=== PATIENT | male | born 1980 | race Caucasian/White ===

== ENCOUNTER 2018-12-10 20:00 | Emergency (ER) | payer SELFPAY ==
[2018-12-10 20:11] VITALS: RESP 18; O2SAT 100
[2018-12-10 21:30] LABS: BASO # 0.1 K/uL (0.0-0.2); BASO % 0.6 % (0.0-2.0); EOS # 0.1 K/uL (0.0-0.7); EOS % 1.3 % (0.0-4.0); HEMOGLOBIN 14.2 g/dL (12.0-18.0); LYMPH % 38.7 % (20.0-40.0); MEAN CORPUSCULAR HEMOGLOBIN 30.9 pg (27.0-31.0); MEAN CORPUSCULAR HGB CONC 33.6 g/dL (33.0-37.0); MEAN PLATELET VOLUME 9.5 fl (7.2-11.7); MONO # 0.7 K/uL (0.0-0.8); MONO % 6.4 % (0.0-10.0); NEUT # 5.5 K/uL (1.8-7.0); NRBC % 0.1 % (0.0-0.0); RBC 4.59 Mil/uL (4.40-5.90); WHITE BLOOD COUNT 10.4 K/uL (4.8-10.8)
[2018-12-10 21:39] LABS: BLOOD UREA NITROGEN 12 mg/dl (9-20); GFR NON-AFRICAN AMERICAN > 60
--- NOTE | 2018-12-10 21:52 | ED PDOC ---
HPI: General Adult Time Seen by Provider: 12/10/18 20:20 Chief Complaint (Nursing): GI Problem Chief Complaint (Provider): rectal bleed History Per: Patient History/Exam Limitations: no limitations Additional Complaint(s): 38 y/o M with no significant PMH who presents with rectal bleeding noted today. Pt states that he noted BRBPR this morning after having normal BM and had 3 more episodes after that in the toilet, not on paper. He did not have any further BMs but attempted to have BM. Denies rectal pain, unintentional weight loss, change in bowel habits/constipation, lightheadedness, bleeding disorder. Past Medical History Reviewed: Historical Data, Nursing Documentation, Vital Signs Vital Signs: Last Vital Signs Temp 98.7 F 12/10/18 20:07 Pulse 85 12/10/18 20:07 Resp 18 12/10/18 20:07 BP 145/79 12/10/18 20:07 Pulse Ox 100 12/10/18 20:07 - Medical History PMH: No Chronic Diseases - Family History Family History: States: Unknown Family Hx - Immunization History Hx Tetanus Toxoid Vaccination: No Hx Influenza Vaccination: No Hx Pneumococcal Vaccination: No - Home Medications Home Medications: Ambulatory Orders Medication Instructions Recorded Docusate Sodium [Colace] 100 mg PO BID 3 Days capsule 12/10/18 - Allergies Allergies/Adverse Reactions: Allergies Allergy/AdvReac Type Severity Reaction Status Date / Time No Known Allergies Allergy Verified 12/10/18 20:05 Review of Systems Constitutional: Negative for: Fever, Chills Gastrointestinal: Positive for: Hematochezia. Negative for: Nausea, Vomiting, Abdominal Pain, Diarrhea, Constipation, Rectal Pain Physical Exam - Reviewed Nursing Documentation Reviewed: Yes Vital Signs Reviewed: Yes - Physical Exam Appears: Positive for: Non-toxic Head Exam: Positive for: ATRAUMATIC Skin: Positive for: Normal Color. Negative for: Pallor Cardiovascular/Chest: Positive for: Regular Rate, Rhythm Respiratory: Positive for: Normal Breath Sounds Gastrointestinal/Abdominal: Positive for: Normal Exam Rectal: Positive for: Rectal Tone Is: (normal), Stool Is Heme: (+), Blood Streaked Stool, Other (performed in the presence of RN Fran). Negative for: Hemorrhoids, Mass Neurological/Psych: Positive for: Awake, Alert, Oriented - Laboratory Results Result Diagrams: 12/10/18 21:27 12/10/18 21:27 - ECG O2 Sat by Pulse Oximetry: 100 Medical Decision Making Medical Decision Making: CBC, BMP Occult stool Occult stool + labs wnl. Stable for d/c home with recommendation to follow up with GI doctor for further evaluation of rectal pain. Disposition - Clinical Impression Clinical Impression: Rectal bleed - Patient ED Disposition Is Patient to be Admitted: No - Disposition Referrals: [facility] [Outside] Jeb Bernal MD, PhD [Staff Provider] - Disposition: Routine/Home Disposition Time: 23:40 Condition: STABLE Additional Instructions: Follow up with your primary care provider and GI doctor for further evaluation of rectal bleeding as you may need a colonoscopy. Return to ER if you have wors ening bleeding or feel lightheaded. Prescriptions: Docusate Sodium [Colace] 100 mg PO BID 3 Days capsule Instructions: Bloody Stools, Adult (DC) Forms: [facility] (German) Print Language: [place]
[2018-12-10 23:34] VITALS: BP 114/73; PULSE 76; TEMP 98.6
== END 2018-12-10 23:40 | disposition home or self-care (01) ==
LOC: H.ER 20:00
DX: K62.5 Hemorrhage of anus and rectum (principal); Z79.899 Other long term (current) drug therapy
CPT/HCPCS: 80048; 85025; 99284; G0328